=== PATIENT | male | born 1965 | race Caucasian/White ===

== ENCOUNTER 2019-07-09 05:18 | Day surgery (SDC) | payer MEDICAID ==
[~2019-07-09] VITALS: Ht 188 cm; Wt 96.2 kg
[2019-07-09] MEDS ORDERED: LACTATED RINGERS 500 ML IV SCH (06:30)
[2019-07-09] MEDS ORDERED: LACTATED RINGERS 1,000 ML IV SCH (06:30)
[2019-07-09] MEDS ORDERED: BUPIVACAINE/EPINEPH/PF 0.25%/0.0005 10ML ONE ×2 (06:44→09:35)
[2019-07-09] MEDS ORDERED: MORPHINE SULFATE/PF 1MG/ML 10ML AMP ONE (06:44)
[2019-07-09] MEDS ORDERED: EPINEPHRINE 1:1000 1 MG/ML AMP ONE (06:45)
[2019-07-09] MEDS ORDERED: CYAN500T66 PO (06:55)
[2019-07-09] MEDS ORDERED: ATOR10TA69 PO (06:55)
[2019-07-09] MEDS ORDERED: LIDOCAINE HCL/PF 1% 10 MG/ML 5ML VIAL ONE (08:32)
[2019-07-09] MEDS ORDERED: GLYCOPYRROLATE 0.2 MG/ML 2ML VIAL ONE (08:32)
[2019-07-09] MEDS ORDERED: METOCLOPRAMIDE HCL 10MG/2ML VIAL ONE (08:32)
[2019-07-09] MEDS ORDERED: MIDAZOLAM HCL 2 MG/2 ML VIAL ONE (08:32)
[2019-07-09] MEDS ORDERED: PROPOFOL 200MG/20ML VIAL IV ONE (08:32)
[2019-07-09] MEDS ORDERED: ONDANSETRON HCL 4MG/2ML INJ ONE (08:32)
[2019-07-09] MEDS ORDERED: FENTANYL CITRATE/PF 50MCG/ML 2ML VIAL ONE (08:32)
[2019-07-09] MEDS ORDERED: SUCCINYLCHOLINE CHLORIDE 200MG/10ML IV ONE (08:32)
[2019-07-09] MEDS ORDERED: SODIUM CHLORIDE 0.9% 1,000 ML IV ONE (10:07)
[2019-07-09] MEDS ORDERED: MEPERIDINE HCL/PF 25MG/ML CPJ IV PRN ×2 (10:15)
[2019-07-09] MEDS ORDERED: HYDROMORPHONE HCL/PF 2MG/ML CPJ IV PRN (10:15)
[2019-07-09] MEDS ORDERED: MORPHINE SULFATE 2 MG/ML CPJ (NOT FOR IM USE) IV PRN (10:15)
[2019-07-09] MEDS ORDERED: ONDANSETRON HCL 4MG/2ML INJ IV PRN (10:15)
[2019-07-09] MEDS ORDERED: HYDROCODONE/ACETAMINOPHEN 10/325MG TABLET PO PRN (10:30)
[2019-07-09 11:08] VITALS: BP 114/65
== END 2019-07-09 12:05 | disposition home or self-care (01) ==
LOC: OR 05:18
PROVIDERS: ATTEND Orthopaedic Surgery
DX: S83.241A Other tear of medial meniscus, current injury, right knee, initial encounter (principal); S83.281A Other tear of lateral meniscus, current injury, right knee, initial encounter; M65.88 Other synovitis and tenosynovitis, other site; M94.261 Chondromalacia, right knee; G89.29 Other chronic pain; E78.00 Pure hypercholesterolemia, unspecified; Z79.1 Long term (current) use of non-steroidal anti-inflammatories (NSAID); Z79.899 Other long term (current) drug therapy; Z98.890 Other specified postprocedural states; X58.XXXA Exposure to other specified factors, initial encounter; Y93.89 Activity, other specified; Y92.89 Other specified places as the place of occurrence of the external cause; Y99.8 Other external cause status
CPT/HCPCS: 29880; 88304; 88311; 97116; 97161; J0171; J0330; J2250; J2274; J2405; J2704; J2765; J3010; J3490